=== PATIENT | male | born 1935 | race Caucasian/White ===

== ENCOUNTER → 2016-09-04 | Outpatient (CLI) | payer MEDICARE, OTHER ==
[~2016-09-04] MED LIST: ALPR.25 PO; COZA25TA PO; METO25 PO; NEXI40CA PO; SIMV20 PO; SM A81CH CHEW; TAB-TAB PO; ZITH500T PO
[2016-09-04 09:38] LABS: AUTOMATED NEUTROPHIL # 3.5 TH/MM3 (1.8-7.7); BASOPHIL % 0.5 % (0.0-2.0); EOSINOPHIL # 0.3 TH/MM3 (0-0.4); EOSINOPHIL % 4.8 % (0.0-4.0); HEMATOCRIT 40.6 % (39.0-51.0); HEMO FLAGS DIFF FINAL; LYMPH % 30.6 % (9.0-44.0); LYMPHOCYTE # 2.1 TH/MM3 (1.0-4.8); MEAN CELL VOLUME 88.5 FL (80.0-100.0); MEAN CORPUSCULAR HEMOGLOBIN 30.2 PG (27.0-34.0); MEAN CORPUSCULAR HGB CONC 34.2 % (32.0-36.0); MONO % 12.2 % (0.0-8.0); NEUT % 51.9 % (16.0-70.0); PLATELET COUNT 213 TH/MM3 (150-450); RED BLOOD COUNT 4.59 MIL/MM3 (4.50-5.90); RED CELL DISTRIBUTION WIDTH 13.1 % (11.6-17.2); WHITE BLOOD COUNT 6.8 TH/MM3 (4.0-11.0)
[2016-09-04 10:00] LABS: ALKALINE PHOSPHATASE 94 U/L (45-117); ALT (GPT) 28 U/L (12-78); ANION GAP 7 MEQ/L (5-15); AST (GOT) 33 U/L (15-37); BICARBONATE 29.2 MEQ/L (21.0-32.0); BLOOD UREA NITROGEN 17 MG/DL (7-18); CHLORIDE 106 MEQ/L (98-107); GLOMERULAR FILTRATION RATE 67 ML/MIN (>89); GLUCOSE,FASTING 97 MG/DL (74-99); HDL CHOLESTEROL 39.6 MG/DL (40.0-60.0); LDL CHOLESTEROL 51 MG/DL (0-99); POTASSIUM 4.3 MEQ/L (3.5-5.1); SODIUM (NA) 142 MEQ/L (136-145); TOTAL BILIRUBIN ADULT 0.4 MG/DL (0.2-1.0)
[2016-09-04 10:40] LABS: BLOOD, URINE NEG (NEG); GLUCOSE,URINE NEG (NEG); KETONE, URINE NEG (NEG); MUCUS URINE FEW /lpf (OCC); NITRITE,URINE NEG (NEG); PH, URINE 5.5 (5.0-8.5); URINE COLOR YELLOW (YELLW/STRAW)
== END ==
LOC: PLAB 07:13
PROVIDERS: ATTEND Family Medicine
DX: R39.9 Unspecified symptoms and signs involving the genitourinary system (principal); E78.5 Hyperlipidemia, unspecified
CPT/HCPCS: 36415; 80053; 80061; 81001; 84443; 85025

== ENCOUNTER → 2016-12-30 | Outpatient (CLI) | payer MEDICARE, OTHER ==
[2016-12-30 11:13] LABS: AUTOMATED NEUTROPHIL # 3.3 TH/MM3 (1.8-7.7); BASOPHIL % 0.4 % (0.0-2.0); EOSINOPHIL # 0.2 TH/MM3 (0-0.4); EOSINOPHIL % 3.5 % (0.0-4.0); HEMATOCRIT 44.4 % (39.0-51.0); HEMO FLAGS DIFF FINAL; LYMPH % 34.5 % (9.0-44.0); LYMPHOCYTE # 2.3 TH/MM3 (1.0-4.8); MEAN CELL VOLUME 92.6 FL (80.0-100.0); MEAN CORPUSCULAR HEMOGLOBIN 30.7 PG (27.0-34.0); MEAN CORPUSCULAR HGB CONC 33.2 % (32.0-36.0); MONO % 11.6 % (0.0-8.0); PLATELET COUNT 226 TH/MM3 (150-450); RED CELL DISTRIBUTION WIDTH 13.6 % (11.6-17.2); WHITE BLOOD COUNT 6.6 TH/MM3 (4.0-11.0)
[2016-12-30 11:20] LABS: ALT (GPT) 28 U/L (12-78); ANION GAP 4 MEQ/L (5-15); AST (GOT) 32 U/L (15-37); BICARBONATE 30.1 MEQ/L (21.0-32.0); BLOOD UREA NITROGEN 17 MG/DL (7-18); CHLORIDE 109 MEQ/L (98-107); GLOMERULAR FILTRATION RATE 67 ML/MIN (>89); GLUCOSE,FASTING 100 MG/DL (74-99); POTASSIUM 4.9 MEQ/L (3.5-5.1); SODIUM (NA) 143 MEQ/L (136-145)
[2016-12-30 11:30] LABS: ALKALINE PHOSPHATASE 94 U/L (45-117); HDL CHOLESTEROL 40.3 MG/DL (40.0-60.0); LDL CHOLESTEROL 55 MG/DL (0-99); TOTAL BILIRUBIN ADULT 0.5 MG/DL (0.2-1.0)
== END ==
LOC: PLAB 08:20
PROVIDERS: ATTEND Family Medicine
DX: E78.5 Hyperlipidemia, unspecified (principal)
CPT/HCPCS: 36415; 80053; 80061; 84443; 85025

== ENCOUNTER → 2017-02-09 | Outpatient (CLI) | payer MEDICARE, OTHER ==
[2017-02-09 11:51] LABS: BLOOD, URINE NEG (NEG); GLUCOSE,URINE NEG (NEG); KETONE, URINE NEG (NEG); MUCUS URINE FEW /lpf (OCC); NITRITE,URINE NEG (NEG); PH, URINE 5.5 (5.0-8.5); URINE COLOR YELLOW (YELLW/STRAW)
[2017-02-09 11:52] LABS: COMMENT (UR) CULT NOT INDICATED; CULTURE IF INDICATED CULT NOT INDICATED
[2017-02-09 12:14] LABS: MICRO ALBUMIN RANDOM URINE RAW 9.7 MG/L (0.0-30.0)
[2017-02-09 13:43] LABS: HEMOGLOBIN A1a 1.1 %; HEMOGLOBIN A1b 1.5 %; HEMOGLOBIN Ao 85.3 %; HEMOGLOBIN LA1C 2.1 %; HEMOGLOBIN P3 3.9 %
== END ==
LOC: PLAB 07:50
PROVIDERS: ATTEND Family Medicine
DX: I10 Essential (primary) hypertension (principal); E78.5 Hyperlipidemia, unspecified; R73.01 Impaired fasting glucose
CPT/HCPCS: 36415; 81001; 82043; 83036

== ENCOUNTER 2017-09-01 07:59 | Inpatient (IN) | payer MEDICARE, OTHER ==
[~2017-09-01] VITALS: Ht 182.9 cm; Wt 80.5 kg
[2017-09-01] VITALS (7 sets, daily range): BP systolic 117–148; BP diastolic 60–77; PULSE 59–64; RESP 14–18; TEMP 96.3–97.3; O2SAT 95–98
--- NOTE | 2017-09-01 08:25 | PD ---
HPI Chief Complaint: General Weakness Time Seen by Provider: 08:02 Travel History International Travel<30 days: No Contact w/Intl Traveler<30days: No Traveled to known affect area: No History of Present Illness HPI This 82-year-old male says that when he woke up this morning he felt like his equilibrium was off. He had to hold onto heaton to prevent himself from falling he felt unsteady on his feet. He did not have any headache. He had felt well when he went to bed. He did not have any trouble with his arms. He feels when he stands that he is unsteady. He had a subdural 21 years ago and has a plate in his head. He had a pacemaker placed 2 years ago. He has a history of prostate cancer that was initially treated 15 years ago. Recently apparently has previously has been going up and is going to [facility] for treatment. He wears bilateral hearing aids. He does not have tinnitus. He does not describe dizziness PFSH Past Medical History Hx Anticoagulant Therapy: Yes (asa 81mg) Arthritis: No Asthma: No Anxiety: Yes Heart Rhythm Problems: No Cancer: Yes (PROSTATE) Cardiovascular Problems: Yes (pacemaker) High Cholesterol: Yes Chemotherapy: No Chest Pain: No Congestive Heart Failure: No COPD: No Cerebrovascular Accident: No Coronary Artery Disease: Yes Diabetes: No Diminished Hearing: Yes (HEARING AIDS IN PLACE) Endocrine: No Gastrointestinal Disorders: No GERD: Yes Genitourinary: No Headaches: No Hypertension: Yes Immune Disorder: No Implanted Vascular Access Dvce: No Musculoskeletal: No Neurologic: Yes (brain aneurysm) Psychiatric: Yes Reproductive: No Respiratory: No Immunizations Current: Yes Migraines: No Radiation Therapy: Yes (seeds and radiation) Seizures: No Sleep Apnea: No Past Surgical History Abdominal Surgery: No Cardiac Surgery: No Ear Surgery: No Endocrine Surgery: No Eye Surgery: Yes (cataract b/l) Genitourinary Surgery: No Gynecologic Surgery: No Neurologic Surgery: Yes (SUBDURAL HEMATOMA BRAIN SURGERY ) Oral Surgery: No Thoracic Surgery: No Other Surgery: Yes (PACEMAKER) Social History Alcohol Use: No Tobacco Use: No Substance Use: No Allergies-Medications (Allergen,Severity, Reaction): Coded Allergies: Influenza Virus Vaccines (Unverified Allergy, Severe, 09/01/17) Reported Meds & Prescriptions Reported Meds & Active Scripts Active Reported Multi-Vitamin Daily (Multiple Vitamin) 1 Tab Tab 1 Tab PO DAILY Azelastine Nasal [place] (Azelastine HCl) 0.1% [place] 1 [place] EACH NARE BID Simvastatin 20 Mg Tab 20 Mg PO DAILY Nexium (Esomeprazole DR) 40 Mg Capdr 40 Mg PO DAILY Metoprolol Tartrate 25 Mg Tab 25 Mg PO BID Losartan (Losartan Potassium) 25 Mg Tab 25 Mg PO DAILY Aspirin Low Dose (Aspirin) 81 Mg Chew 81 Mg CHEW DAILY Alprazolam 0.25 Mg Tab 0.25 Mg PO HS PRN Review of Systems General / Constitutional: No: Fever, Chills Eyes: No: Diploplia, Blurred Vision HENT: No: Headaches Cardiovascular: No: Chest Pain or Discomfort, Palpitations Respiratory: No: Shortness of Breath, Wheezing Gastrointestinal: No: Nausea, Vomiting Genitourinary: No: Urgency, Frequency Musculoskeletal: No: Myalgias, Arthralgias Skin: No Rash Neurologic: Positive: Weakness, No: Focal Abnormalities Psychiatric: No: Anxiety Hematologic/Lymphatic: No: Easy Bruising Physical Exam Narrative GENERAL: Well-developed male SKIN: Focused skin assessment warm/dry. HEAD: Atraumatic. Normocephalic. EYES: Pupils equal and round. No scleral icterus. No injection or drainage. ENT: No nasal bleeding or discharge. Mucous membranes pink and moist. Bilateral hearing aids NECK: Trachea midline. No JVD. CARDIOVASCULAR: Regular rate and rhythm. No murmur appreciated. RESPIRATORY: No accessory muscle use. Clear to auscultation. Breath sounds equal bilaterally. GASTROINTESTINAL: Abdomen soft, non-tender, nondistended. Hepatic and splenic margins not palpable. MUSCULOSKELETAL: No obvious deformities. No clubbing. No cyanosis. No edema. NEUROLOGICAL: Awake and alert. No obvious cranial nerve deficits. Motor grossly within normal limits. Normal speech. PSYCHIATRIC: Appropriate mood and affect; insight and judgment normal. Data Data Last Documented VS Vital Signs Date Time Temp Pulse Resp B/P (MAP) Pulse Ox O2 Delivery O2 Flow Rate FiO2 09/01/17 09:45 59 18 140/70 (93) 98 Room Air 09/01/17 08:01 97.3 Orders Orders Electrocardiogram (09/01/17 08:18) Complete Blood Count With Diff (09/01/17 08:18) Comprehensive Metabolic Panel (09/01/17 08:18) Urinalysis - C+S If Indicated (09/01/17 08:18) Ct Brain W/O Iv Contrast(Rout) (09/01/17 08:18) Orthostatic Vital Signs (09/01/17 08:18) Aspirin (Aspirin) (09/01/17 10:15) Labs Laboratory Tests Test 09/01/17 08:45 09/01/17 09:52 White Blood Count 6.0 TH/MM3 Red Blood Count 4.74 MIL/MM3 Hemoglobin 14.3 GM/DL Hematocrit 42.4 % Mean Corpuscular Volume 89.4 FL Mean Corpuscular Hemoglobin 30.2 PG Mean Corpuscular Hemoglobin Concent 33.8 % Red Cell Distribution Width 12.8 % Platelet Count 220 TH/MM3 Mean Platelet Volume 6.9 FL Neutrophils (%) (Auto) 57.9 % Lymphocytes (%) (Auto) 25.1 % Monocytes (%) (Auto) 11.4 % Eosinophils (%) (Auto) 5.2 % Basophils (%) (Auto) 0.4 % Neutrophils # (Auto) 3.5 TH/MM3 Lymphocytes # (Auto) 1.5 TH/MM3 Monocytes # (Auto) 0.7 TH/MM3 Eosinophils # (Auto) 0.3 TH/MM3 Basophils # (Auto) 0.0 TH/MM3 CBC Comment DIFF FINAL Differential Comment Blood Urea Nitrogen 18 MG/DL Creatinine 1.10 MG/DL Random Glucose 116 MG/DL Total Protein 6.8 GM/DL Albumin 3.5 GM/DL Calcium Level 8.2 MG/DL Alkaline Phosphatase 106 U/L Aspartate Amino Transf (AST/SGOT) 32 U/L Alanine Aminotransferase (ALT/SGPT) 29 U/L Total Bilirubin 0.4 MG/DL Sodium Level 142 MEQ/L Potassium Level 4.0 MEQ/L Chloride Level 109 MEQ/L Carbon Dioxide Level 29.1 MEQ/L Anion Gap 4 MEQ/L Estimat Glomerular Filtration Rate 64 ML/MIN Urine Collection Type CLEAN CATCH Urine Color YELLOW Urine Turbidity CLEAR Urine pH 7.5 Urine Specific [place] 1.015 Urine Protein NEG mg/dL Urine Glucose (UA) NEG mg/dL Urine Ketones NEG mg/dL Urine Occult Blood NEG Urine Nitrite NEG Urine Bilirubin NEG Urine Urobilinogen 0.2 MG/DL Urine Leukocyte Esterase NEG Urine RBC 0-3 /hpf Urine Squamous Epithelial Cells 0-5 /hpf Microscopic Urinalysis Comment CULT NOT INDICATED Urine Collection Time 09:52 MDM Medical Decision Making Medical Screen Exam Complete: Yes Emergency Medical Condition: Yes Medical Record Reviewed: Yes Differential Diagnosis Differential includes labyrinthitis, vertigo, orthostatic hypotension, CVA Narrative Course Orthostatic vital signs do not show any significant change. CT scan does not show any significant abnormality. Patient has been observed. He still feels a bit lightheaded. He does not describe dizziness. His EKG shows paced rhythm. Unfortunately CT does not rule out a stroke and the patient is still having symptoms. He will be admitted for further evaluation Diagnosis Primary Impression: Disequilibrium Admitting Information Admitting Physician Requests: Observation Jose R Cornelius MD Sep 01, 2017 08:25
[2017-09-01] MEDS ORDERED: METO25TA3 PO (08:30)
[2017-09-01] MEDS ORDERED: AZEL1SPR2 EACH NARE (08:30)
[2017-09-01] MEDS ORDERED: ALPR0.25 PO (08:30)
[2017-09-01] MEDS ORDERED: ASPI81CH6 CHEW (08:30)
[2017-09-01] MEDS ORDERED: LOSA25TA PO (08:30)
[2017-09-01] MEDS ORDERED: SIMV20TA PO (08:30)
[2017-09-01] MEDS ORDERED: NEXI40CA PO (08:30)
[2017-09-01] MEDS ORDERED: MULT-65 PO (08:30)
[2017-09-01 08:55] LABS: AUTOMATED NEUTROPHIL # 3.5 TH/MM3 (1.8-7.7); BASOPHIL % 0.4 % (0.0-2.0); EOSINOPHIL # 0.3 TH/MM3 (0-0.4); EOSINOPHIL % 5.2 % (0.0-4.0); HEMATOCRIT 42.4 % (39.0-51.0); HEMOGLOBIN 14.3 GM/DL (13.0-17.0); LYMPH % 25.1 % (9.0-44.0); LYMPHOCYTE # 1.5 TH/MM3 (1.0-4.8); MEAN CELL VOLUME 89.4 FL (80.0-100.0); MEAN CORPUSCULAR HEMOGLOBIN 30.2 PG (27.0-34.0); MEAN CORPUSCULAR HGB CONC 33.8 % (32.0-36.0); MEAN PLATELET VOLUME 6.9 FL (7.0-11.0); MONO % 11.4 % (0.0-8.0); MONOCYTE # 0.7 TH/MM3 (0-0.9); NEUT % 57.9 % (16.0-70.0); PLATELET COUNT 220 TH/MM3 (150-450); RED BLOOD COUNT 4.74 MIL/MM3 (4.50-5.90); RED CELL DISTRIBUTION WIDTH 12.8 % (11.6-17.2)
[2017-09-01 09:03] LABS: CHLORIDE 109 MEQ/L (98-107); SODIUM (NA) 142 MEQ/L (136-145)
[2017-09-01 09:06] LABS: ALBUMIN 3.5 GM/DL (3.4-5.0); BICARBONATE 29.1 MEQ/L (21.0-32.0); CALCIUM 8.2 MG/DL (8.5-10.1); GLUCOSE,RANDOM 116 MG/DL (74-106)
[2017-09-01 09:07] LABS: BLOOD UREA NITROGEN 18 MG/DL (7-18)
[2017-09-01 09:09] LABS: ALT (GPT) 29 U/L (12-78)
[2017-09-01 09:10] LABS: AST (GOT) 32 U/L (15-37); GLOMERULAR FILTRATION RATE 64 ML/MIN (>89)
[2017-09-01 09:11] LABS: TOTAL BILIRUBIN ADULT 0.4 MG/DL (0.2-1.0); TOTAL PROTEIN 6.8 GM/DL (6.4-8.2)
[2017-09-01 09:12] LABS: ALKALINE PHOSPHATASE 106 U/L (45-117)
--- NOTE | 2017-09-01 09:14 | RADRPT ---
EXAM DATE/TIME: 09/01/2017 08:49 [facility] COMPARISON: CT BRAIN W/O CONTRAST, November 23, 2014, 9:25. INDICATIONS : Dizziness and generalized weakness. RADIATION DOSE: 54.72 CTDIvol (mGy) MEDICAL HISTORY : Cardiovascular disease. Aneurysm, intracranial. Carcinoma, prostate.Anticoagulant therapy. SURGICAL HISTORY : Pacemaker. Intracranial aneurysm repair. ENCOUNTER: Initial ACUITY: 1 day PAIN SCALE: 0/10 LOCATION: cranial TECHNIQUE: Multiple contiguous axial images were obtained of the head. Using automated exposure control and adj ustment of the mA and/or kV according to patient size, radiation dose was kept as low as reasonably a chievable to obtain optimal diagnostic quality images. DICOM format image data is available electro nically for review and comparison. FINDINGS: CEREBRUM: The ventricles are normal for age. Scattered areas of low-attenuation are seen throughout the white m atter. No evidence of midline shift, mass lesion, hemorrhage or acute infarction. No extra-axial fl uid collections are seen. POSTERIOR FOSSA: The cerebellum and brainstem are intact. The 4th ventricle is midline. The cerebellopontine angle i s unremarkable. EXTRACRANIAL: The visualized portion of the orbits is intact. SKULL: Previous left frontal craniotomy. No evidence of skull fracture. CONCLUSION: 1. 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 2. No acute intracranial abnormalities. 3. Previous left-sided craniotomy. Jose Elias MD on September 01, 2017 at 9:10 Board Certified Radiologist. This report was verified electronically.
[2017-09-01 09:56] LABS: BILIRUBIN, URINE NEG (NEG); BLOOD, URINE NEG (NEG); GLUCOSE,URINE NEG (NEG); KETONE, URINE NEG (NEG); NITRITE,URINE NEG (NEG); PH, URINE 7.5 (5.0-8.5); URINE COLOR YELLOW (YELLW/STRAW); URINE LEUKOCYTE ESTERASE NEG (NEG)
[2017-09-01 10:02] LABS: RBC, URINE 0-3 /hpf (0-3); SQUAMOUS EPITHELIAL CELL URINE 0-5 /hpf (0-5)
[2017-09-01] MEDS ORDERED: ASPIRIN 325 MG TAB PO ONE (10:15)
[2017-09-01] MEDS ORDERED: DEXTROSE 50% IN WATER 50 ML VIAL(D50) IV PUSH PRN (10:15)
[2017-09-01] MEDS ORDERED: SODIUM CHLORIDE 0.9% FLUSH 10 ML FLUSH IV FLUSH PRN (10:15)
[2017-09-01] MEDS ORDERED: GLUCAGON 1 MG/ML VIAL OTHER PRN (10:15)
[2017-09-01] MEDS: INSULIN ASPART SUPPLEMENTAL SCALE SQ SCH ×2 (12:00→17:00)
--- NOTE | 2017-09-01 13:56 | HHI.HP ---
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 At that time he had a feeling of disequilibrium and this was a treatment recommended. Today he had acute sensation of disequilibrium. Overnight and this morning physical total of 2 Xanax because of some insomnia and anxiety. He denies any fevers or chills or chest pain. There is been no headache or change in vision he has severe difficulty hearing and has bilateral hearing aids. There is quite a bit of cerumen in his left ear. Patient says that he does not have dizziness but he has significant disequilibrium. He is not orthostatic CT of the head is unremarkable Labs are read and are normal Patient symptoms are improved Patient has been seen by the physical therapy team. Patient feels almost back to baseline Review of Systems Constitutional: DENIES: Diaphoretic episodes, Fatigue, Fever, Weight gain, Weight loss, Chills, Dizziness, Change in appetite, Night Sweats Endocrine: DENIES: Heat/cold intolerance, Polydipsia, Polyuria, Polyphagia Eyes: DENIES: Blurred vision, Diplopia, Eye inflammation, Eye pain, Vision loss , Photosensitivity, Double Vision Ears, nose, mouth, throat: COMPLAINS OF: Hearing loss, DENIES: Tinnitus, Vertigo, Nasal discharge, Oral lesions, Throat pain, Hoarseness, Ear Pain, Running Nose, Epistaxis, Sinus Pain, Toothache, Odynophagia Respiratory: DENIES: Apneas, Cough, Snoring, Wheezing, Hemoptysis, Sputum production, Shortness of breath Cardiovascular: DENIES: Chest pain, Palpitations, Syncope, Dyspnea on Exertion , PND, Lower Extremity Edema, Orthopnea, Claudication Gastrointestinal: DENIES: Abdominal pain, Black stools, Bloody stools, Constipation, Diarrhea, Nausea, Vomiting, Difficulty Swallowing, Anorexia Genitourinary: DENIES: Sexual dysfunction, Urinary frequency, Urinary incontinence, Urgency, Hematuria, Dysuria, Nocturia, Penile Discharge, Testicular Pain, Testicular Swelling Musculoskeletal: DENIES: Joint pain, Muscle aches, Stiffness, Joint Swelling, Back pain, Neck pain Integumentary: DENIES: Abnormal pigmentation, Nail changes, Pruritus, Rash Hematologic/lymphatic: DENIES: Bruising, Lymphadenopathy Immunologic/allergic: DENIES: Eczema, Urticaria Neurologic: DENIES: Abnormal gait, Headache, Localized weakness, Paresthesias, Seizures, Speech Problems, Tremor, Poor Balance Psychiatric: DENIES: Anxiety, Confusion, Mood changes, Depression, Hallucinations, Agitation, Suicidal Ideation, Homicidal Ideation, Delusions Past Family Social History Past Medical History Pacemaker secondary to symptomatic bradycardia Hypertension Hyperlipidemia Reflux Anxiety Chronic nasal Past Surgical History Pacemaker Inguinal hernia repair Evacuation of subdural hematoma Cataract surgery Reported Medications Reviewed in the EMR Allergies: Coded Allergies: Influenza Virus Vaccines (Unverified Allergy, Severe, 09/01/17) Active Ordered Medications Reviewed in the EMR Family History Patient has outlived his family Social History No tobacco or alcohol dependency, Physical Exam Vital Signs Vital Signs Date Time Temp Pulse Resp B/P (MAP) Pulse Ox O2 Delivery O2 Flow Rate FiO2 09/01/17 12:20 64 18 141/67 (91) 98 09/01/17 11:12 62 18 148/70 (96) 98 09/01/17 09:45 59 18 140/70 (93) 98 Room Air 09/01/17 08:35 60 18 130/67 (88) 98 Room Air 09/01/17 08:35 60 16 135/67 (89) 60 16 138/70 (92) 63 16 130/60 (83) 09/01/17 08:26 60 18 141/77 (98) 98 Room Air 09/01/17 08:21 63 98 Room Air 09/01/17 08:01 97.3 63 16 139/73 (95) 95 Physical Exam GENERAL: This is a well-nourished, well-developed patient, in no apparent distress. SKIN: No rashes, ecchymoses or lesions. Cool and dry. HEAD: Atraumatic. Normocephalic. No temporal or scalp tenderness. EYES: Pupils equal round and reactive. Extraocular motions intact. No scleral icterus. No injection or drainage. ENT: Nose without bleeding, purulent drainage or septal hematoma. Throat without erythema, tonsillar hypertrophy or exudate. Uvula midline. Airway patent. Bilateral cerumen worse on left than right NECK: Trachea midline. No JVD or lymphadenopathy. Supple, nontender, no meningeal signs. CARDIOVASCULAR: Regular rate and rhythm without murmurs, gallops, or rubs. RESPIRATORY: Clear to auscultation. Breath sounds equal bilaterally. No wheezes , rales, or rhonchi. GASTROINTESTINAL: Abdomen soft, non-tender, nondistended. No hepato-splenomegaly , or palpable masses. No guarding. MUSCULOSKELETAL: Extremities without clubbing, cyanosis, or edema. No joint tenderness, effusion, or edema noted. No calf tenderness. Negative Homans sign bilaterally. NEUROLOGICAL: Awake and alert. Cranial nerves II through XII intact. Motor and sensory grossly within normal limits. Five out of 5 muscle strength in all muscle groups. Normal speech. Laboratory Laboratory Tests Test 09/01/17 08:45 09/01/17 09:52 White Blood Count 6.0 Red Blood Count 4.74 Hemoglobin 14.3 Hematocrit 42.4 Mean Corpuscular Volume 89.4 Mean Corpuscular Hemoglobin 30.2 Mean Corpuscular Hemoglobin Concent 33.8 Red Cell Distribution Width 12.8 Platelet Count 220 Mean Platelet Volume 6.9 Neutrophils (%) (Auto) 57.9 Lymphocytes (%) (Auto) 25.1 Monocytes (%) (Auto) 11.4 Eosinophils (%) (Auto) 5.2 Basophils (%) (Auto) 0.4 Neutrophils # (Auto) 3.5 Lymphocytes # (Auto) 1.5 Monocytes # (Auto) 0.7 Eosinophils # (Auto) 0.3 Basophils # (Auto) 0.0 CBC Comment DIFF FINAL Differential Comment Blood Urea Nitrogen 18 Creatinine 1.10 Random Glucose 116 Total Protein 6.8 Albumin 3.5 Calcium Level 8.2 Alkaline Phosphatase 106 Aspartate Amino Transf (AST/SGOT) 32 Alanine Aminotransferase (ALT/SGPT) 29 Total Bilirubin 0.4 Sodium Level 142 Potassium Level 4.0 Chloride Level 109 Carbon Dioxide Level 29.1 Anion Gap 4 Estimat Glomerular Filtration Rate 64 Urine Collection Type CLEAN CATCH Urine Color YELLOW Urine Turbidity CLEAR Urine pH 7.5 Urine Specific [place] 1.015 Urine Protein NEG Urine Glucose (UA) NEG Urine Ketones NEG Urine Occult Blood NEG Urine Nitrite NEG Urine Bilirubin NEG Urine Urobilinogen 0.2 Urine Leukocyte Esterase NEG Urine RBC 0-3 Urine Squamous Epithelial Cells 0-5 Microscopic Urinalysis Comment CULT NOT INDICATED Urine Collection Time 09:52 Result Diagram: 09/01/17 0845 09/01/17 0845 Imaging Last Impressions Head CT 09/01/17817 Signed Impressions: Service Date/Time: Friday, September 01, 2017 08:49 - CONCLUSION: 1. 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 2. No acute intracranial abnormalities. 3. Previous left-sided craniotomy. Jose Elias MD Assessment and Plan Problem List: (1) Disequilibrium ICD Code: R42 - Dizziness and giddiness Status: Acute Plan: Etiology unclear at this time may be some inner ear issues At this time we will continue with cerumen treatment No evidence of arrhythmia or stroke (2) Hypertension ICD Code: I10 - Hypertension Status: Chronic Plan: Currently controlled on losartan and metoprolol Code Status Full code Discussed Condition With Discharge home pending improvement Activity unrestricted Diet regular Shelli Huang MD Sep 01, 2017 13:56
[2017-09-01] MEDS ORDERED: METOPROLOL TARTRATE 25 MG TAB PO SCH (14:00)
[2017-09-01] MEDS ORDERED: PANTOPRAZOLE SOD 40 MG DELAYED RELEASE TAB PO SCH (14:00)
[2017-09-01] MEDS ORDERED: MULTIVITAMIN TAB PO SCH (14:00)
[2017-09-01] MEDS ORDERED: CARBAMIDE PEROXIDE 6.5% OTIC SOLN 15 ML BTL EACH EAR SCH (14:00)
[2017-09-01] MEDS ORDERED: ALPRAZolam 0.25 MG TAB PO PRN (14:00)
[2017-09-01] MEDS ORDERED: SODIUM CHLORIDE 0.65% NASAL SPRAY 45 ML BTL EACH NARE PRN (14:00)
[2017-09-01] MEDS ORDERED: ASPIRIN 81 MG CHEW TAB CHEW SCH (14:00)
[2017-09-01] MEDS ORDERED: PRAVASTATIN SOD 40 MG TAB PO SCH (14:00)
[2017-09-01] MEDS ORDERED: LOSARTAN 25 MG TAB PO SCH (14:00)
--- NOTE | 2017-09-01 15:28 | EKG ---
Date Performed: 09/01/2017 Time Performed: 08:27:20 PTAGE: 82 years EKG: ELECTRONIC ATRIAL PACEMAKER MARKED LEFT AXIS DEVIATION LEFT BUNDLE BRANCH BLOCK ABNORMAL EC G PREVIOUS TRACING : 07/24/2015 23.29 Prolonged QT interval DOCTOR: Sriram Rodriguez Interpretating Date/Time 09/01/2017 15:21:44
[2017-09-01 16:06] LABS: HEMOGLOBIN A1C 5.6 % (4.3-6.0)
--- NOTE | 2017-09-01 16:16 | HHI.DCPOC ---
Discharge Care Plan Diagnosis: (1) Disequilibrium Goals to Promote Your Health * To prevent worsening of your condition and complications * To maintain your health at the optimal level Directions to Meet Your Goals Take your medications as prescribed Follow your dietary instruction Follow activity as directed Keep your appointments as scheduled Take your immunizations and boosters as scheduled If your symptoms worsen call your PCP, if no PCP go to Urgent Care Center or Emergency Room Smoking is Dangerous to Your Health. Avoid second hand smoke Call the 24-hour hour crisis hotline for domestic abuse at Shelli Huang MD Sep 01, 2017 16:16
[2017-09-01] MEDS ORDERED: SODIUM CHLORIDE 0.9% FLUSH 10 ML FLUSH IV FLUSH SCH (21:00)
[2017-09-02] MEDS ORDERED: ASPIRIN 325 MG TAB PO SCH (09:00)
== END 2017-09-01 18:33 | disposition home or self-care (01) | DRG 149 ==
LOC: PHED 07:59 → PHEDA 10:15 → PH3A 11:15 → OBSVTOIN 15:44
PROVIDERS: ADMIT Hospitalist; ATTEND Hospitalist
DX: R42 Dizziness and giddiness (principal); I10 Essential (primary) hypertension; E78.5 Hyperlipidemia, unspecified; F41.9 Anxiety disorder, unspecified; H91.90 Unspecified hearing loss, unspecified ear; G47.00 Insomnia, unspecified; I25.10 Atherosclerotic heart disease of native coronary artery without angina pectoris; K21.9 Gastro-esophageal reflux disease without esophagitis; Z95.0 Presence of cardiac pacemaker; Z79.82 Long term (current) use of aspirin; Z85.46 Personal history of malignant neoplasm of prostate
CPT/HCPCS: 70450; 80053; 81001; 82948; 83036; 85025; 93005; 99285; G8987-GO; G8987-GP; G8988-GO; G8988-GP